=== PATIENT | male | born 1965 | race Caucasian/White ===

== ENCOUNTER 2022-01-15 11:13 | Emergency (ER) | payer MEDICARE ==
[~2022-01-15] VITALS: Ht 160 cm; Wt 74.8 kg
[2022-01-15] MEDS ORDERED: BUSP10 PO (11:55)
[2022-01-15] MEDS ORDERED: PARO30 PO (11:56)
[2022-01-15] MEDS ORDERED: OMEP20ER PO (11:57)
[2022-01-15] MEDS ORDERED: TAMS.4ER PO (11:57)
[2022-01-15] MEDS ORDERED: CYCL10 PO (13:41)
== END 2022-01-15 13:52 | disposition home or self-care (01) ==
LOC: ER 11:13
DX: M54.50 Low back pain, unspecified (principal); M19.90 Unspecified osteoarthritis, unspecified site
CPT/HCPCS: 72100; 96374; 99283-25; A9270; J7030